=== PATIENT | female | born 1980 | race Two or more races ===

== ENCOUNTER → 2017-02-24 | Outpatient (REF) | payer OTHER | LOC: M SFHCLERA 18:37 | PROVIDERS: ATTEND Nurse Practitioner Family | DX: R53.81 Other malaise (principal); R19.7 Diarrhea, unspecified ==

== ENCOUNTER 2017-04-26 19:06 | Emergency (ER) | payer OTHER ==
[~2017-04-26] VITALS: Ht 170.2 cm; Wt 86.2 kg
[2017-04-26 20:13] VITALS: BP 144/83
== END 2017-04-26 20:13 | disposition home or self-care (01) ==
LOC: M ED 19:48
DX: F41.1 Generalized anxiety disorder (principal)